=== PATIENT | female | born 1995 | race Caucasian/White ===

== ENCOUNTER 2016-08-13 17:43 | Emergency (ER) | payer OTHER ==
[2016-08-13 17:49] VITALS: BP 127/79; PULSE 102; RESP 16; TEMP 99; O2SAT 95
[2016-08-13] MEDS ORDERED: ACETAMINOPHEN 500 MG TAB ONE (17:50)
[2016-08-13] MEDS ORDERED: ACETAMINOPHEN 325 MG TAB PO ONE (17:52)
--- NOTE | 2016-08-13 18:34 | UCPHY ---
H & P Time Seen by Provider: 08/13/16 18:19 Patient Type: New HPI/ROS: CHIEF COMPLAINT: I think I have mastitis HISTORY OF PRESENT ILLNESS: The patient is a 21-year-old female who presents to the emergency department with concerns for possible mastitis. The patient has been breast feeding since June 06. She had 1 previous episode of mastitis that she treated at home and it resolved without antibiotics. Last night she developed left breast discomfort. Today she had flu-like symptoms. She describes a fever to 101.9. She has not lifted her breasts see if it has increased redness. No nausea or vomiting. No cough or shortness of breath. REVIEW OF SYSTEMS: My complete review of systems is negative except as mentioned in the HPI. Past Medical/Surgical History: Possible previous mastoiditis Smoking Status: Never smoked Physical Exam: 37.2, 127/79, 102, 16, 95% on room air GENERAL: Well-appearing, in no acute distress, alert. HEENT: Eyes normal to inspection. RESPIRATORY: Clear to auscultation bilaterally. CVS: Regular rate and rhythm, no rubs, murmurs, or gallops. Breast: Patient has mild erythema on the lateral aspect of her left breast surrounding the areola. There is no discharge. No streaking into the axilla. No palpable mass or fluctuance. ABDOMEN: Soft, nontender. SKIN: Normal color, warm, dry. No pallor. See breast exam EXTREMITIES: Normal. NEURO/PSYCH: Alert and oriented, normal mood and affect Constitutional: Initial Vital Signs Temperature (C) 37.2 C 08/13/16 17:47 Heart Rate 102 H 08/13/16 17:47 Respiratory Rate 16 08/13/16 17:47 Blood Pressure 127/79 H 08/13/16 17:47 O2 Sat (%) 95 08/13/16 17:47 O2 Delivery Mode Room Air Allergies/Adverse Reactions: No Known Allergies Allergy (Unverified 03/06/10 12:30) Home Medications: Medication Instructions Recorded Cephalexin [Keflex (*)] 500 mg PO QID 10 Days 08/13/16 Medical Decision Making ED Course/Re-evaluation: At urgent care discussed possible etiologies with the patient. I discussed care of mastitis. I answered all the patient's questions. I gave her warnings prior to leaving. She will return with worsening symptoms. The patient was given a prescription for Keflex. Differential Diagnosis: My differential includes but is not limited to mastitis, abscess, cellulitis, influenza, bacteremia, sepsis - Data Points Medications Given: Discontinued Medications Acetaminophen (Tylenol) 1,000 mg PO EDNOW ONE Stop: 08/13/16 17:53 Last Admin: 08/13/16 17:55 Dose: 1,000 mg Departure - Departure Disposition: Home, Routine, Self-Care Clinical Impression: Acute mastitis of left breast Condition: Good Instructions: Mastitis (ED) Additional Instructions: Return with increasing pain, redness, fever or any other concerns. Take your entire course of antibiotics. Referrals: Constantino Wilson, [Primary Care Provider] - 3-4 days, if not improved Prescriptions: Cephalexin [Keflex (*)] 500 mg PO QID 10 Days - PQRS PQRS Measurement: NA
== END 2016-08-13 18:45 | disposition home or self-care (01) ==
LOC: CED 17:43
DX: N61.0 Mastitis without abscess (principal)
CPT/HCPCS: 99203-PO; G0463-PO